=== PATIENT | male | born 1980 | race Caucasian/White ===

== ENCOUNTER 2017-12-29 14:00 | Emergency (ER) | payer SELFPAY ==
[2017-12-29 14:16] VITALS: BMI 30.7
--- NOTE | 2017-12-29 19:19 | PDOC ---
History of Present Illness <Everett Virk - Last Filed: 12/29/17 19:49> - General History Source: Patient Exam Limitations: No Limitations - History of Present Illness Initial Comments: 12/29/17 20:31 The patient is a 37 year old male, with no significant PMH who presents to the emergency department with an intermittent stabbing headache that began 2 days ago. He states that today his headache was a 8/10 in severity. He states that he experienced associated pressure and tingling in his upper and lower extremities that lasts for 20 minutes associated with the headache. The patient reports that he has had a similar headache1 months ago and reports that he usually takes motrin with some relief. The patient reports that he feels better now. He denies any change in vision, hearing and taste. No associated weakess, numbness. He denies any nausea vomiting or diarrhea. The patient denies any neck or belly pain. The patient also denies any dizziness , SOB or chest pain. The patient Denies dysuria, frequency, urgency and hematuria.The patent reports daily beer drinking, but notes that the headache seems to worsen on days he is off. 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 <Simran Cedeno - Last Filed: 12/29/17 20:34> - General Chief Complaint: Headache Stated Complaint: BLOOD PRESSURE PROBLEM Time Seen by Provider: 12/29/17 18:31 Past History - Past Medical History COPD: No HTN: Yes (BORDER LINE) - Suicide/Smoking/Psychosocial Hx Smoking Status: No Smoking History: Never smoked Have you smoked in the past 12 months: No Number of Cigarettes Smoked Daily: 0 Information on smoking cessation initiated: No Hx Alcohol Use: No Drug/Substance Use Hx: No Substance Use Type: None <Everett Virk - Last Filed: 12/29/17 19:49> <Simran Cedeno - Last Filed: 12/29/17 20:34> - Past Medical History Allergies/Adverse Reactions: Allergies Allergy/AdvReac Type Severity Reaction Status Date / Time No Known Allergies Allergy Verified 12/29/17 14:12 Home Medications: Ambulatory Orders No Home Medications 0 dose .ROUTE UTDICT 08/08/12 Review of Systems - Review of Systems Able to Perform ROS?: Yes Comments:: 12/29/17 20:31 CONSTITUTIONAL: No reported: Fever, Chills, Diaphoresis, Generalized Weakness, Malaise, Loss of Appetite HEENT: No reported: Rhinorrhea, Nasal Congestion, Throat Pain, Throat Swelling, Difficulty Swallowing, Mouth Swelling, Ear Pain, Eye Pain, Visual Changes CARDIOVASCULAR: No reported: Chest Pain, Syncope, Palpitations, Irregular Heart Rate, Lightheadedness, Peripheral Edema RESPIRATORY: No reported: Cough, Shortness of Breath, SOB with Exertion, Orthopnea, Wheezing , Stridor, Hemoptysis GASTROINTESTINAL: No reported: Abdominal pain, Abdominal Distension, Nausea, Vomiting, Diarrhea, Constipation, Melena, Hematochezia GENITOURINARY: No reported: Dysuria, Frequency, Urgency, Hesitancy, Flank Pain, Genital Pain MUSCULOSKELETAL: No reported: Myalgia, Arthralgia, Joint Swelling, Back pain, Neck Pain SKIN: No reported: Rash, Itching, Pallor HEMEATOLOGIC/IMMUNOLOGIC: No reported: Easy Bleeding, Easy Bruising, Lymphadenopathy, Frequent infections ENDOCRINE: No reported: Unexplained Weight Gain, Unexplained Weight Loss, Heat Intolerance , Cold Intolerance NEUROLOGIC: Reported(+) Headache No reported: Focal Weakness, Paresthesias, Vertigo, Lightheadedness, Unsteady Gait, Seizure, Mental Status Changes, Incontinence PSYCHIATRIC: No reported: Anxiety, Depression <Simran Cedeno - Last Filed: 12/29/17 20:34> *Physical Exam - Vital Signs Last Vital Signs Temp Pulse Resp BP Pulse Ox 98.3 F 96 H 18 143/104 100 12/29/17 14:13 12/29/17 14:13 12/29/17 14:13 12/29/17 14:13 12/29/17 14:13 <Everett Virk - Last Filed: 12/29/17 19:49> - Vital Signs Last Vital Signs Temp Pulse Resp BP Pulse Ox 98.1 F 82 18 149/95 100 12/29/17 19:58 12/29/17 19:58 12/29/17 19:58 12/29/17 19:58 12/29/17 19:58 - Physical Exam Comments: 12/29/17 20:32 GENERAL: The patient is awake, alert, and fully oriented, Nontoxic - in no acute distress. HEAD: Normocephalic, atraumatic. EYES: extraocular movements intact, sclera anicteric, conjunctiva clear. ENT: Normal voice, Moist mucous membranes. NECK: Normal range of motion, supple LUNGS: Breath sounds equal, clear to auscultation bilaterally. No wheezes, no rhonchi, no rales. HEART: Regular rate and rhythm, normal S1 and S2 without murmur, rub or gallop. ABDOMEN: Soft, nontender, normoactive bowel sounds. No guarding, no rebound. . No CVA tenderness EXTREMITIES: Normal range of motion, no edema. No clubbing or cyanosis. No cords, erythema, or tenderness. PSYCH: Normal mood, normal affect. SKIN: Warm, Dry, normal turgor, NEURO: Mental status: The patient is oriented x3. Cranial nerves: Cranial nerves II through XII are intact Motor: The upper extremities are 5 over 5 in all muscle groups. The lower extremities are 5 over 5 in all muscle groups. Negative pronator drift Sensation: Sensation is intact to light touch throughout. romberg negative Cerebellar: [id number] is normal in both upper extremities. rapid alternating movements are normal. Gait: Normal. Heel and toe walking are normal. Tandem gait is normal. <Simran Cedeno - Last Filed: 12/29/17 20:34> ED Treatment Course - Medications Given in the ED: ED Medications Discontinued Medications Generic Name Dose Route Start Last Admin Trade Name Eric PRN Reason Stop Dose Admin Acetaminophen 650 mg 12/29/17 19:22 12/29/17 20:00 Tylenol - PO 12/29/17 19:23 650 mg ONCE ONE Administration Metoclopramide HCl 10 mg 12/29/17 19:20 12/29/17 20:00 Reglan - PO 12/29/17 19:21 10 mg ONCE ONE Administration <Simran Cedeno - Last Filed: 12/29/17 20:34> Medical Decision Making - Medical Decision Making 12/29/17 19:17 37y M presents with headache, endorses stabbing generalized headache that is intermittent since friday, headache, lasting fo2 0 minutes a time, assocated with pressure like sensation in his arms and legs that resolve with hi sheadache. Pt notes he was in the ED for evaluation for similar headache last month and had CT and lab work and was given motrin, but states motrin was not that effective today. Pt denies any neuro sypmtoms, head trauma. Currently feels like his headache is resolving. pt does note he frequently drinks etoh with his boss and headaches seem worse on his days off. exam unremarkble including complete neuro exam possible tesnion headache pt given reglan/tylenol with improvement will dc with pmd fu return precautions were discussed I discussed the physical exam findings, ancillary test results and final diagnoses with the patient. I answered all of the patient's questions. The patient was satisfied with the care received and felt comfortable with the discharge plan and treatment plan. The patient will call their primary care physician within 24 hours to arrange follow-up and will return to the Emergency Department with any new, persistent or worsening symptoms. <Everett Virk - Last Filed: 12/29/17 19:49> *DC/Admit/Observation/Transfer - Discharge Dispostion Admit: No <Everett Virk - Last Filed: 12/29/17 19:49> - Attestations Scribe Attestion: 12/29/17 20:33 Documentation prepared by Simran Cedeno, acting as medical records manager for Everett Virk MD. <Simran Cedeno - Last Filed: 12/29/17 20:34> Diagnosis at time of Disposition: Migraine Qualifiers: Migraine type: without aura Status migrainosus presence: without status migrainosus Intractability: not intractable Qualified Code(s): G43.009 - Migraine without aura, not intractable, without status migrainosus - Discharge Dispostion Disposition: HOME Condition at time of disposition: Improved - Referrals Referrals: Dony Barnett MD [Staff Physician] - - Patient Instructions Printed Discharge Instructions: DI for Migraine Additional Instructions: Return to the emergency department immediately with ANY new, persistent or worsening symptoms including worsening headache, vision changes, numbness/ tingling/weakness, persistent nausea and vomiting or any other concerns. Make sure you are getting adaqute sleep and hydration. Take tylenol or motrin as needed for your headache. You MUST call and follow up with your doctor tomorrow for further evaluation of your symptoms. Your emergency department visit is not complete without a followup with your doctor for reevaluation. Results were discussed with you. Please make sure your doctor reviews the results of your emergency evaluation. Print Language: [place]
[2017-12-29] MEDS ORDERED: IBUPROFEN 400 MG TABLET (FP) PO PRN (19:20)
[2017-12-29] MEDS ORDERED: METOCLOPRAMIDE HCL 10 MG TABLET (FP) PO ONE ×2 (19:20→19:26)
[2017-12-29] MEDS ORDERED: ACETAMINOPHEN 325 MG TABLET (FP) PO ONE (19:22)
[2017-12-29] MEDS ORDERED: ACETAMINOPHEN 325 MG TABLET (FP) ONE (19:25)
[2017-12-29 20:00] VITALS: BP 149/95; PULSE 82; TEMP 98.1
== END 2017-12-29 20:00 | disposition home or self-care (01) ==
LOC: JER 14:00
DX: G43.009 Migraine without aura, not intractable, without status migrainosus (principal); I10 Essential (primary) hypertension
CPT/HCPCS: 99282-25